=== PATIENT | female | born 1985 | race Two or more races ===

== ENCOUNTER 2023-01-21 17:49 | Emergency (ER) | payer OTHER ==
[~2023-01-21] VITALS: Ht 162.6 cm; Wt 90.4 kg
[2023-01-21 18:07] VITALS: BP 147/98
== END 2023-01-21 21:14 | disposition left against medical advice (07) ==
LOC: ER 17:49
DX: L02.212 Cutaneous abscess of back [any part, except buttock and flank] (principal); Z53.21 Procedure and treatment not carried out due to patient leaving prior to being seen by health care provider